=== PATIENT | female | born 1950 | race Caucasian/White ===

== ENCOUNTER → 2017-08-29 | Outpatient (CLI) | payer OTHER, MEDICARE | LOC: FIMAGING 08:09 | PROVIDERS: ATTEND Family Medicine | DX: M25.551 Pain in right hip (principal); M16.11 Unilateral primary osteoarthritis, right hip ==

== ENCOUNTER → 2018-03-17 | Outpatient (CLI) | payer OTHER, MEDICARE | LOC: BHCLAF 09:15 | PROVIDERS: ATTEND Internal Medicine Cardiovascular Disease | DX: I10 Essential (primary) hypertension (principal) | CPT/HCPCS: 93306-PO ==

== ENCOUNTER → 2018-07-15 | Outpatient (CLI) | payer OTHER, MEDICARE | LOC: FIMAGING 10:27 | PROVIDERS: ATTEND Family Medicine | DX: Z12.31 Encounter for screening mammogram for malignant neoplasm of breast (principal) ==

== ENCOUNTER → 2018-09-08 | Outpatient (CLI) | payer OTHER, MEDICARE | LOC: FIMAGING 13:35 | PROVIDERS: ATTEND Family Medicine | DX: R51 Headache (principal) | CPT/HCPCS: 70551-PN ==